=== PATIENT | male | born 1990 | race Two or more races ===

== ENCOUNTER 2016-05-20 18:01 | Emergency (ER) | payer SELFPAY ==
[2016-05-20] MEDS ORDERED: OXYCODONE-ACETAMINOPHEN 5-325 MG TABLET PO ONE (20:02)
[2016-05-20] MEDS ORDERED: ONDANSETRON 4 MG TAB.RAPDIS PO ONE (20:02)
--- NOTE | 2016-05-20 20:05 | ER Document Report ---
ED Medical Screen (RME) - General Chief Complaint: Mouth Problem Stated Complaint: DIFFICULTY SWALLOWING Time seen by provider: 20:03 Mode of Arrival: Ambulatory Information source: Patient Notes: 25-year-old male complaining of gingivostomatitis with a fever and lymph nodes. His girlfriend had a fever blister last week. Painful and he feels like he can't swallow very well. I have greeted and performed a rapid initial assessment of this patient. A comprehensive ED assessment, evaluation of the patient, analysis of test results , and completion of the medical decision making process will be conducted by additional ED providers. TRAVEL OUTSIDE OF THE [place] IN LAST 30 DAYS: No - Related Data Allergies/Adverse Reactions: No Known Allergies Allergy (Verified 11/28/13 08:49) Past Medical History Pulmonary Medical History: Reports: Hx Asthma - Immunizations Hx Diphtheria, Pertussis, Tetanus Vaccination: No Physical Exam - Vital signs Vitals: Temp Pulse Resp BP Pulse Ox 99.2 F 105 H 16 128/79 H 97 05/20/16 18:07 05/20/16 18:07 05/20/16 18:07 05/20/16 18:07 05/20/16 18:07 Course - Vital Signs Vital signs: Temp Pulse Resp BP Pulse Ox 99.2 F 105 H 16 128/79 H 97 05/20/16 18:07 05/20/16 18:07 05/20/16 18:07 05/20/16 18:07 05/20/16 18:07
--- NOTE | 2016-05-20 23:14 | ER Document Report ---
ED Oral Problem - General Mode of Arrival: Ambulatory Information source: Patient, Parent TRAVEL OUTSIDE OF THE [place] IN LAST 30 DAYS: No - HPI Patient complains to provider of: Other - mouth pain with lesions Onset: Other - x2 days Quality of pain: Burning Severity: None Context: Other - see narrative Associated symptoms: None - General Chief Complaint: Mouth Problem Stated Complaint: DIFFICULTY SWALLOWING Notes: Patient is a 25-year-old male that presents to the emergency department today with complaints of mouth pain with oral lesions 2 days. Patient states it is difficult to drink or talk secondary to pain. Patient states he recently had unprotected oral sex with his girlfriend. Mother at bedside also states that she has noticed cold sores on the patient's girlfriend's mouth recently. Patient states he does not believe he has had cold sores or herpes simplex virus in the past. Patient states the lesions are only in his mouth, and he denies having any genital lesions, hand lesions, or foot lesions. (DARLIN MARY) - Related Data Allergies/Adverse Reactions: No Known Allergies Allergy (Verified 05/20/16 21:15) Past Medical History - General Information source: Patient, [facility] Records - Social History Smoking Status: Current Every Day Smoker Cigarette use (# per day): Yes Chew tobacco use (# tins/day): No Frequency of alcohol use: None Drug Abuse: None Lives with: Family Family History: Reviewed & Not Pertinent Patient has suicidal ideation: No Patient has homicidal ideation: No Pulmonary Medical History: Reports: Hx Asthma Past Surgical History: Reports: Hx Tonsillectomy - Immunizations Hx Diphtheria, Pertussis, Tetanus Vaccination: No Review of Systems - Review of Systems Constitutional: No symptoms reported EENT: See HPI, Mouth pain Cardiovascular: No symptoms reported Respiratory: No symptoms reported Gastrointestinal: No symptoms reported Genitourinary: No symptoms reported Male Genitourinary: No symptoms reported Musculoskeletal: No symptoms reported Skin: No symptoms reported Hematologic/Lymphatic: No symptoms reported Neurological/Psychological: No symptoms reported -: Yes All other systems reviewed and negative Physical Exam - Vital signs Vitals: Temp Pulse Resp BP Pulse Ox 99.2 F 105 H 16 128/79 H 97 05/20/16 18:07 05/20/16 18:07 05/20/16 18:07 05/20/16 18:07 05/20/16 18:07 (DARLIN MARY) (CHARIS NERI) - Notes Notes: Physical Exam General: Alert, appears well. HEENT: Normocephalic. Atraumatic. PERRL. Extraocular movements intact. Ulcerations inside of the mouth, including the gums, hard/soft palate, and oropharynx consistent with herpes simplex virus. Neck: Supple. Respiratory: No respiratory distress. Abdominal: Normal Inspection. No distension. Extremities: Moves all four extremities. Neurological: Normal cognition. AAOx4. Normal speech. Psychological: Normal affect. Normal Mood. Skin: see oral exam, no lesions noted on hands. (DARLIN MARY) Course - Re-evaluation Re-evalutation: 05/21/16 Patient with recent exposure to herpes. Girlfriend with cold sore. Patient appears to have a primary HSV infection of his mouth. Patient will be given Xylocaine for pain. He will also be given a prescription for Magic mouthwash. Patient will be medicated with Valtrex. Has been educated about herpes. Stable for discharge home. Return if any worsening or concerning symptoms. Patient has been instructed about careful handwashing. (CHARIS NERI) - Vital Signs Vital signs: Temp Pulse Resp BP Pulse Ox 98.8 F 105 H 14 127/82 H 97 05/20/16 23:38 05/20/16 23:38 05/20/16 23:38 05/20/16 23:38 05/20/16 23:38 (DARLIN MARY) (CHARIS NERI) - Laboratory Laboratory results interpreted by me: 05/20/16 22:55 Chlamydia DNA (PCR) DETECTED H Discharge - Discharge Clinical Impression: Primary HSV infection with gingivostomatitis Condition: Stable Disposition: HOME, SELF-CARE Instructions: Herpes Simplex ([facility]), Genital Herpes ([facility]) Prescriptions: Lidocaine HCl [Xylocaine 2% Viscous Soln 20 ml Udcup] 5 ml PO TIDP PRN #1 udc PRN Reason: Nystatin/Dexameth/Diphen [Magic Mouthwash ([facility] Formula) Susp] 5 ml PO QID #120 ml Valacyclovir HCl [Valtrex] 1,000 mg PO TID #30 tablet Forms: Smoking Cessation Education, Return to Work Scribe Attestation: 05/21/16 03:24 I personally performed the services described in the documentation, reviewed and edited the documentation which was dictated to the scribe in my presence, and it accurately records my words and actions. (CHARIS NERI) Scribe Documentation - Scribe Written by Scribe:: Reji Mcgrath, [id number] 05/21/2016 acting as scribe for :: Talisha
[2016-05-20] MEDS ORDERED: VALACYCLOVIR HCL 500 MG TABLET PO ONE (23:15)
[2016-05-20] MEDS ORDERED: LIDOCAINE 2% VISCOUS SOLN 20 ML UDCUP PO ONE (23:15)
[2016-05-20 23:43] VITALS: BP 127/82
[2016-05-21 00:41] LABS: CHLAM PCR DETECTED (NOT DETECT)
== END 2016-05-20 23:40 | disposition home or self-care (01) ==
LOC: ER 18:01
DX: B00.2 Herpesviral gingivostomatitis and pharyngotonsillitis (principal); F17.210 Nicotine dependence, cigarettes, uncomplicated; J45.909 Unspecified asthma, uncomplicated
CPT/HCPCS: 99283; 87491; 87591; S0119; J3490

== ENCOUNTER 2016-08-25 21:48 | Emergency (ER) | payer OTHER, MEDICAID ==
[2016-08-26] MEDS ORDERED: HYDROCODONE/ACETAMINOPHEN 5-325 MG 6 TAB/DSPK PO PRN (01:00)
[2016-08-26] MEDS ORDERED: PENICILLIN V POTASSIUM 500 MG TABLET PO ONE (01:00)
[2016-08-26] MEDS ORDERED: MORPHINE SULFATE 10 MG/ML INJ IM ONE (01:00)
--- NOTE | 2016-08-26 01:06 | ER Document Report ---
ED Oral Problem - General Chief Complaint: Toothache Stated Complaint: TOOTH PAIN Time Seen by Provider: 08/26/16 00:53 Mode of Arrival: Ambulatory Information source: Patient TRAVEL OUTSIDE OF THE [place] IN LAST 30 DAYS: No - HPI Patient complains to provider of: Toothache Onset: This evening Onset: Sudden Quality of pain: Achy Severity: Moderate Pain Level: 4 Context: Fractured tooth Associated symptoms: Earache Relieved by: Nothing Notes: Patient is a 25-year-old male who presents to the emergency room complaining of dental pain reports that he broke his more in the right mandible approximately 1 month ago, however after eating dinner this evening he developed intense pain in this area, denies any fever, no drainage does not currently have a dentist to follow-up with - Related Data Allergies/Adverse Reactions: No Known Allergies Allergy (Verified 05/20/16 21:15) Past Medical History - General Information source: Patient - Social History Smoking Status: Never Smoker Family History: Reviewed & Not Pertinent Patient has suicidal ideation: No Patient has homicidal ideation: No Pulmonary Medical History: Reports: Hx Asthma Renal/ Medical History: Denies: Hx Peritoneal Dialysis Past Surgical History: Reports: Hx Tonsillectomy - Immunizations Hx Diphtheria, Pertussis, Tetanus Vaccination: No Review of Systems - Review of Systems Constitutional: No symptoms reported EENT: Dental problem Cardiovascular: No symptoms reported Respiratory: No symptoms reported Gastrointestinal: No symptoms reported Genitourinary: No symptoms reported Male Genitourinary: No symptoms reported Musculoskeletal: No symptoms reported Skin: No symptoms reported Hematologic/Lymphatic: No symptoms reported Neurological/Psychological: No symptoms reported -: Yes All other systems reviewed and negative Physical Exam - Vital signs Vitals: Temp Pulse Resp BP Pulse Ox 99.3 F 79 16 131/75 H 96 08/25/16 22:58 08/25/16 22:58 08/25/16 22:58 08/25/16 22:58 08/25/16 22:58 - Notes Notes: - General General appearance: Appears well, Alert In distress: None - HEENT Head: Normocephalic, Atraumatic Eyes: Normal Conjunctiva: Normal Extraocular movements intact: Yes Eyelashes: Normal Pupils: PERRL - Respiratory Respiratory status: No respiratory distress - Cardiovascular Rhythm: Regular - Abdominal Inspection: Normal - Back Back: Normal - Extremities General upper extremity: Normal inspection General lower extremity: Normal inspection - Neurological Neuro grossly intact: Yes Orientation: AAOx4 K[place] Coma Scale Eye Opening: Spontaneous [place] Coma Scale Verbal: Oriented K[place] Coma Scale Motor: Obeys Commands Kaden Coma Scale Total: 15 - Psychological Associated symptoms: Normal affect, Normal mood - Skin Skin Temperature: Warm Skin Moisture: Dry Skin Color: Normal - HEENT Mouth/Lips: Caries, Dental fracture Mucous membranes: Normal Teeth diagram: 1 - dental fracture with dental caries Course - Re-evaluation Re-evalutation: 08/26/16 03:46 Reports minimal relief from morphine injection, therefore an inferior alveolar dental block was performed using bupivacaine patient tolerated procedure well and reports pain relief he was provided with pain medication and antibiotics as well as information for follow-up, advised to return if symptoms worsen, patient acknowledges understanding and agreement with this plan - Vital Signs Vital signs: Temp Pulse Resp BP Pulse Ox 99.0 F 82 16 134/88 H 98 08/26/16 01:50 08/26/16 01:50 08/26/16 01:50 08/26/16 01:50 08/26/16 01:50 Procedures - Additional Procedures Dental block Time performed: 02:00 Additional Procedures: Other - Inferior alveolar dental block, area was anesthetized, 3 mL's of bupivacaine were injected to inferior alveolar space, patient tolerated procedure well Discharge - Discharge Clinical Impression: Tooth fracture Qualifiers: Encounter type: initial encounter Fracture type: closed Qualified Code(s): S02.5XXA - Fracture of tooth (traumatic), initial encounter for closed fracture Condition: Stable Disposition: HOME, SELF-CARE Instructions: [facility], Oral Narcotic Medication ([facility]), Penicillin V K ([facility]), Toothache ([facility]) Additional Instructions: Follow-up with a dentist within the next week. Return to the emergency room if symptoms worsen or any additional concerns. Prescriptions: Oxycodone HCl/Acetaminophen [Percocet 5-325 mg Tablet] 1 - 2 tab PO ASDIR PRN # 15 tablet PRN Reason: Penicillin V Potassium [Penicillin Vk 500 mg Tablet] 500 mg PO TID #30 tablet
[2016-08-26] MEDS ORDERED: BUPIVACAINE HCL 0.75% INJ/PF (7.5 MG/1 ML) 10 ML SDV INJ ONE (01:30)
[2016-08-26 02:01] VITALS: BP 134/88
== END 2016-08-26 01:50 | disposition home or self-care (01) ==
LOC: ER 21:48
PROC: 3E0T3BZ Introduction of Anesthetic Agent into Peripheral Nerves and Plexi, Percutaneous Approach (ICD-10-PCS; principal; 2016-08-25)
DX: S02.5XXA Fracture of tooth (traumatic), initial encounter for closed fracture (principal); K08.89 Other specified disorders of teeth and supporting structures; X58.XXXA Exposure to other specified factors, initial encounter
CPT/HCPCS: 99282; 96372; 64400; J2270; J3490

== ENCOUNTER 2017-05-15 01:30 | Emergency (ER) | payer OTHER, MEDICAID ==
[2017-05-15] MEDS ORDERED: ACETAMINOPHEN 325 MG TABLET PO ONE (03:37)
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
--- NOTE | 2017-05-15 06:26 | RADIOLOGY REPORT (SQ) ---
EXAM DESCRIPTION: CT HEAD WITHOUT CLINICAL HISTORY: trauma COMPARISON: None available TECHNIQUE: Axial CT of the head obtained from the skull apex to the skull base without contrast. FINDINGS: No acute intracranial hemorrhage identified. No mass, mass effect, shift of the midline, abnormal extra-axial fluid collection or CT evidence of acute ischemic change identified. The ventricular system is unremarkable. No acute abnormalities of the supratentorial white matter, basal ganglia, cerebellum, or brainstem. The visualized paranasal sinuses and the mastoids are clear. No skull fracture identified. Visualized orbits and globes are unremarkable. Bilateral minimally displaced nasal bone fractures identified. Please see facial bone CT for further details. DLP:1450.37 mGy-cm IMPRESSION: 1. No acute intracranial abnormality by CT criteria. This exam was performed according to our departmental dose-optimization program, which includes automated exposure control, adjustment of the mA and/or kV according to patient size and/or use of iterative reconstruction technique.
--- NOTE | 2017-05-15 06:28 | RADIOLOGY REPORT (SQ) ---
EXAM DESCRIPTION: CT CERVICAL SPINE WITHOUT CLINICAL HISTORY: trauma COMPARISON: 09/16/2010 TECHNIQUE: Axial CT of the cervical spine obtained without contrast. FINDINGS: Alignment of the cervical spine is maintained without evidence of subluxation. The atlantoaxial, atlantodental, and occipitoatlantal intervals are preserved. No fracture identified. Vertebral body height preserved. Prevertebral soft tissues are unremarkable. Intervertebral disc height maintained. Visualized skull base is intact. No fracture of the visualized facial bones. Visualized mastoid air cells and paranasal sinuses are well aerated. Visualized thyroid is unremarkable. No cervical lymphadenopathy. No pneumothorax in the visualized lung apices. DLP: 424.42 mGy-cm IMPRESSION: 1. No acute fracture or subluxation of the cervical spine. This exam was performed according to our departmental dose-optimization program, which includes automated exposure control, adjustment of the mA and/or kV according to patient size and/or use of iterative reconstruction technique.
--- NOTE | 2017-05-15 06:32 | RADIOLOGY REPORT (SQ) ---
EXAM DESCRIPTION: CT FACIAL AREA WITHOUT CLINICAL HISTORY: trauma COMPARISON: None available TECHNIQUE: Axial CT of the facial bones obtained without contrast. FINDINGS: Acute comminuted minimally displaced bilateral nasal bone fractures. Orbital rankin are intact. No abnormality of the globes or intraconal contents. Maxillary antral rankin are intact. Minimal mucosal thickening of the ethmoid air cells and maxillary sinuses. Mastoid air cells are well aerated. Maxillary hard palate is intact. Zygomatic processes are intact. Pterygoid plates are intact. No mandibular fracture identified. No mandibular condylar dislocation. The nasopharyngeal, oropharyngeal, hypopharyngeal soft tissues demonstrate no definite abnormality. No abnormality identified in the thyroid gland. Parotid glands and submandibular glands are unremarkable. DLP: 536.09 mGy-cm IMPRESSION: 1. Acute minimally displaced bilateral nasal bone fractures. This exam was performed according to our departmental dose-optimization program, which includes automated exposure control, adjustment of the mA and/or kV according to patient size and/or use of iterative reconstruction technique.
--- NOTE | 2017-05-15 06:41 | RADIOLOGY REPORT (SQ) ---
EXAM DESCRIPTION: ANKLE RIGHT COMPLETE CLINICAL HISTORY: trauma COMPARISON: None. FINDINGS: 3 views of the right ankle. No acute fracture or dislocation. Tibial plafond and talar dome have normal appearance. Normal osseous mineralization. IMPRESSION: No acute fracture or dislocation.
--- NOTE | 2017-05-15 06:43 | RADIOLOGY REPORT (SQ) ---
EXAM DESCRIPTION: HAND BILATERAL 3 VIEWS CLINICAL HISTORY: trauma COMPARISON: None. FINDINGS: Left hand: 3 views of the left hand. Acute minimally displaced volarly angulated fracture of the distal left fifth metacarpal. Normal osseous mineralization. No other acute fracture identified. Right hand: 3 views of the right hand. No acute fracture or dislocation. Normal osseous mineralization. IMPRESSION: 1. Acute minimally displaced volarly angulated fracture of the distal left fifth metacarpal. 2. No acute right hand fracture.
[2017-05-15 07:17] VITALS: BP 129/75
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
[2017-05-15] MEDS ORDERED: OXYCODONE-ACETAMINOPHEN 5-325 MG TABLET PO ONE (07:46)
[2017-05-15] MEDS ORDERED: OXYMETAZOLINE HCL 0.05% NASAL SPRAY 15 ML BOTTLE NASL ONE (08:27)
== END 2017-05-15 09:25 | disposition home or self-care (01) ==
LOC: ER 01:30
DX: S02.2XXA Fracture of nasal bones, initial encounter for closed fracture (principal); S01.21XA Laceration without foreign body of nose, initial encounter; S62.367A Nondisplaced fracture of neck of fifth metacarpal bone, left hand, initial encounter for closed fracture; Y04.2XXA Assault by strike against or bumped into by another person, initial encounter; Y93.01 Activity, walking, marching and hiking; Y92.410 Unspecified street and highway as the place of occurrence of the external cause
CPT/HCPCS: 99284; 73610; 73130; 70450; 70486; 72125; 29125; 12011; L0172; J3490

== ENCOUNTER 2017-07-31 21:41 | Emergency (ER) | payer MEDICAID, OTHER ==
[2017-07-31] MEDS ORDERED: ONDANSETRON 4 MG TAB.RAPDIS PO ONE (23:19)
[2017-07-31] MEDS ORDERED: NORMAL SALINE 1000 ML 1,000 ML IV ONE (23:19)
--- NOTE | 2017-07-31 23:20 | ER Document Report ---
ED Medical Screen (RME) - General Chief Complaint: Nausea/Vomiting Stated Complaint: VOMITING Time Seen by Provider: 07/31/17 23:19 Mode of Arrival: Ambulatory Information source: Patient Notes: Patient presents complaining of nausea and vomiting that started yesterday. Patient states he is vomited about 20 times today. Patient complains of generalized abdominal cramping and states that he has had intermittent muscle cramps. I have greeted and performed a rapid initial assessment of this patient. A comprehensive ED assessment and evaluation of the patient, analysis of test results and completion of the medical decision making process will be conducted by additional ED providers. TRAVEL OUTSIDE OF THE [place] IN LAST 30 DAYS: No - Related Data Allergies/Adverse Reactions: No Known Allergies Allergy (Verified 05/20/16 21:15) Past Medical History Pulmonary Medical History: Denies: Hx Asthma Renal/ Medical History: Denies: Hx Peritoneal Dialysis Past Surgical History: Reports: Hx Tonsillectomy - Immunizations Hx Diphtheria, Pertussis, Tetanus Vaccination: No Physical Exam - Vital signs Vitals: Temp Pulse Resp BP Pulse Ox 98.6 F 79 18 132/88 H 97 07/31/17 22:39 07/31/17 22:39 07/31/17 22:39 07/31/17 22:39 07/31/17 22:39 - Abdominal Tenderness: Tender - Generalized abdomen Course - Vital Signs Vital signs: Temp Pulse Resp BP Pulse Ox 98.6 F 79 18 132/88 H 97 07/31/17 22:39 07/31/17 22:39 07/31/17 22:39 07/31/17 22:39 07/31/17 22:39
[2017-08-01 00:15] LABS: APPEARANCE,URINE SLIGHTLY-CLOUDY; BILIRUBIN,URINE SMALL (NEGATIVE); COLOR,URINE AMBER; GLUCOSE, URINE NEGATIVE (NEGATIVE); KETONES,URINE 80 mg/dL (NEGATIVE); LEUKOCYTE ESTERASE,URINE NEGATIVE (NEGATIVE); NITRITE,URINE NEGATIVE (NEGATIVE); PROTEIN,URINE >=500 mg/dL (NEGATIVE); URINE SPECIFIC GRAVITY 1.032
[2017-08-01 00:16] LABS: ABSOLUTE LYMPHOCYTES (AUTO) 0.9 10^3/uL (0.5-4.7); ABSOLUTE MONOCYTES (AUTO) 0.5 10^3/uL (0.1-1.4); ABSOLUTE NEUT (AUTO) 4.5 10^3/uL (1.7-8.2); BASOPHILS % (AUTO) 0.5 % (0-2); EOSINOPHILS % (AUTO) 0.7 % (0-6); HEMATOCRIT 46.1 % (37.9-51.0); HEMOGLOBIN 15.6 g/dL (13.5-17.0); LYMPHOCYTES % (AUTO) 14.5 % (13-45); MEAN CORPUSCULAR HEMOGLOBIN 32.1 pg (27.0-33.4); MEAN CORPUSCULAR HGB CONC 33.9 g/dL (32.0-36.0); MEAN CORPUSCULAR VOLUME 95 fl (80-97); MONOCYTES % (AUTO) 8.2 % (3-13); PLATELET COUNT 172 10^3/uL (150-450); RED BLOOD COUNT 4.88 10^6/uL (4.35-5.55); RED CELL DISTRIBUTION WIDTH 16.1 % (11.5-14.0); SEGMENTED NEUTROPHILS % (AUTO) 76.1 % (42-78); TOTAL CELLS COUNTED % (AUTO) 100 %; WHITE BLOOD COUNT 5.9 10^3/uL (4.0-10.5)
[2017-08-01 00:36] LABS: ALANINE AMINOTRANSFERASE 230 U/L (21-72); ALBUMIN 5.3 g/dL (3.5-5.0); ALKALINE PHOSPHATASE 105 U/L (38-126); ANION GAP 14 (5-19); ASPARTATE AMINO TRANSFERASE 214 U/L (17-59); BILIRUBIN,DIRECT 0.4 mg/dL (0.0-0.4); BILIRUBIN,TOTAL 1.1 mg/dL (0.2-1.3); BLOOD UREA NITROGEN 13 mg/dL (7-20); CALCIUM 9.4 mg/dL (8.4-10.2); CARBON DIOXIDE 32 mmol/L (22-30); CHLORIDE 95 mmol/L (98-107); CREATINE KINASE 296 U/L (55-170); GLUCOSE 124 mg/dL (75-110); LIPASE 74.1 U/L (23-300); POTASSIUM 3.5 mmol/L (3.6-5.0); SODIUM 141.2 mmol/L (137-145); TOTAL PROTEIN 8.9 g/dL (6.3-8.2)
[2017-08-01] MEDS ORDERED: NORMAL SALINE 1000 ML 1,000 ML IV ONE (00:48)
--- NOTE | 2017-08-01 01:10 | ER Document Report ---
ED GI/ - General Chief Complaint: Nausea/Vomiting Stated Complaint: VOMITING Time Seen by Provider: 07/31/17 23:19 Mode of Arrival: Ambulatory Notes: The patient is a 26-year-old male, no past medical history, presents with 2 days of nausea and multiple episodes of nonbloody, nonbilious vomiting. He denies abdominal pain, recent travel, hematemesis, fevers, tainted food, diarrhea, constipation, urinary symptoms, history of hepatitis or heavy Tylenol use. TRAVEL OUTSIDE OF THE [place] IN LAST 30 DAYS: No - Related Data Allergies/Adverse Reactions: No Known Allergies Allergy (Verified 05/20/16 21:15) Past Medical History - General Information source: Patient - Social History Smoking Status: Unknown if Ever Smoked Family History: Reviewed & Not Pertinent Pulmonary Medical History: Denies: Hx Asthma Renal/ Medical History: Denies: Hx Peritoneal Dialysis Past Surgical History: Reports: Hx Tonsillectomy - Immunizations Hx Diphtheria, Pertussis, Tetanus Vaccination: No Review of Systems - Review of Systems Notes: REVIEW OF SYSTEMS: CONSTITUTIONAL: -fevers, -chills EENT: -eye pain, -difficulty swallowing, -nasal congestion CARDIOVASCULAR: -chest pain, -syncope. RESPIRATORY: -cough, -SOB GASTROINTESTINAL: -abdominal pain, +nausea, +vomiting, -diarrhea GENITOURINARY: -dysuria, -hematuria MUSCULOSKELETAL: -back pain, -neck pain SKIN: -rash or skin lesions. HEMATOLOGIC: -easy bruising or bleeding. LYMPHATIC: -swollen, enlarged glands. NEUROLOGICAL: -altered mental status or loss of consciousness, -headache, - neurologic symptoms PSYCHIATRIC: -anxiety, -depression. ALL OTHER SYSTEMS REVIEWED AND NEGATIVE. Physical Exam - Vital signs Vitals: Temp Pulse Resp BP Pulse Ox 98.6 F 79 18 132/88 H 97 07/31/17 22:39 07/31/17 22:39 07/31/17 22:39 07/31/17 22:39 07/31/17 22:39 - Notes Notes: PHYSICAL EXAMINATION: GENERAL: Well-appearing, well-nourished and in no acute distress. HEAD: Atraumatic, normocephalic. EYES: Pupils equal round and reactive to light, extraocular movements intact, sclera anicteric, conjunctiva are normal. ENT: nares patent, oropharynx clear without exudates. Moist mucous membranes. NECK: Normal range of motion, supple without lymphadenopathy LUNGS: Breath sounds clear to auscultation bilaterally and equal. No wheezes rales or rhonchi. HEART: Regular rate and rhythm without murmurs ABDOMEN: Soft, nontender, normoactive bowel sounds. No guarding, no rebound. No masses appreciated. EXTREMITIES: Normal range of motion, no pitting or edema. No cyanosis. NEUROLOGICAL: Cranial nerves grossly intact. Normal speech, normal gait. Normal sensory and motor exams. PSYCH: Normal mood, normal affect. SKIN: Warm, Dry, normal turgor, no rashes or lesions noted. Course - Re-evaluation Re-evalutation: Patient appears very well. After IV fluids and Zofran, he feels much better. Blood work is consistent with mild dehydration. He does have elevated LFTs and hepatitis panel sent. Ultrasound obtained of the liver, which does not show any acute abnormalities. He is tolerating fluids by mouth in the ER. Instructed him to stay hydrated and given very strict return precautions. hepatitis panel is pending upon his discharge. - Vital Signs Vital signs: Temp Pulse Resp BP Pulse Ox 98.3 F 89 18 133/88 H 96 08/01/17 02:52 08/01/17 02:52 08/01/17 02:52 08/01/17 02:52 08/01/17 02:52 - Laboratory Result Diagrams: 07/31/17 23:39 07/31/17 23:39 Laboratory results interpreted by me: 07/31/17 07/31/17 07/31/17 23:39 23:39 23:39 RDW 16.1 H Potassium 3.5 L Chloride 95 L Carbon Dioxide 32 H Glucose 124 H AST 214 H ALT 230 H Creatine Kinase 296 H Total Protein 8.9 H Albumin 5.3 H Urine Protein >=500 H Urine Ketones 80 H Urine Bilirubin SMALL H Urine Urobilinogen 4.0 H - Diagnostic Test Radiology reviewed: Image reviewed, Reports reviewed Radiology results interpreted by me: JULIAN US: Normal Discharge - Discharge Clinical Impression: Nausea and vomiting in adult, Elevated LFTs Condition: Stable Disposition: HOME, SELF-CARE Additional Instructions: Your liver tests are elevated. You should have this rechecked by your primary care physician this week when you are not having vomiting. Return to the ER if you have any worsening symptoms. VOMITING: Vomiting (or nausea without vomiting) can be caused by many other different problems. It can mean that something's wrong with the stomach, such as ulcers or inflammation or the intestinal tract, such as appendicitis. But it can also be a symptom of a problem that has nothing to do with the stomach or intestines. Vomiting is common with severe headaches, earaches, tonsillitis, and kidney infections, etc. We see it with pneumonia or heart attacks. Drugs can cause nausea and vomiting. Many abdominal problems cause vomiting; for example, gallstones, kidney stones, pancreatitis, and intestinal obstruction ( blocked bowels). In most cases, curing the vomiting depends on fixing the problem that caused it. For temporary relief, we may use an anti-nausea medicine. For home use, we can prescribe suppositories, chewable pills, pills that dissolve in the mouth, or liquid anti-nausea drugs. If the vomiting seems to be caused by a problem in the stomach, acid-suppressing drugs may be prescribed as well. It's important to avoid dehydration. Sip small amounts of clear liquids ( soft drinks, tea, broth, etc) . Try to take fluids frequently even if you are vomiting to prevent dehydration. Take increasing amounts of fluid and when liquids are being consumed successfully, advance to small amounts of bland food (toast, soups, mashed potatoes, etc.) until you are able to resume a regular diet. Avoid aspirin, tobacco, and alcohol. If the vomiting worsens, if the problem that's making you vomit worsens, or if there's evidence of bleeding in the stomach (such as black, tarry stool, or bloody or black vomit), you should return immediately. Also, return if abdominal pain worsens or becomes localized to one area or you develop high fever. Call your doctor if you aren't improved in 24 hours. VIRAL SYNDROME: The physician has diagnosed a viral infection. Viruses not only cause "colds," but can cause many different symptoms including generalized aching, fever, headache, cough, diarrhea, nausea, vomiting, and fatigue. The treatment, for the most part, is simply relief of symptoms. This means that antibiotics are usually not given. Rest, fluids, pain medications and, occasionally, medication for the specific symptoms that are most bothersome will be prescribed. Use good handwashing to avoid passing the virus to others. Shared toys should be cleaned with disinfectant. Clean the toilets, sinks, and counter surfaces in bathrooms. Launder clothing in hot water. Contact the physician if you develop any new or unusual symptoms such as severe headache, stiff neck, high fever, chest pain, productive cough, or shortness of breath. You should be rechecked if you don't see marked improvement within seven to 10 days. INTRAVENOUS (I V) FLUIDS: As part of your care today, you received intravenous (IV) fluids. IV fluids are administered to patients who are dehydrated or to those who have certain chemical (electrolyte) abnormalities that need correcting. ANTINAUSEA MEDICATION: You have been given a medication to suppress nausea and vomiting. This type of medication can be given as a shot, pill, or suppository. It will usually last for many hours. Pills and shots usually last six to eight hours. For the typical illness, only one or two doses of the medication may be necessary. Mild lightheadedness may occur. This type of medicine can cause drowsiness. Do not drive or operate dangerous machinery while under its influence. Do not mix with alcohol. See your doctor at once if you have muscle spasms or tightness, or uncontrollable motions (particularly of the neck, mouth, or jaw). Persistent vomiting or severe lightheadedness should also be evaluated by the physician. FOLLOW-UP CARE: If you have been referred to a physician for follow-up care, call the physician s office for an appointment as you were instructed or within the next two days. If you experience worsening or a significant change in your symptoms, notify the physician immediately or return to the Emergency Department at any time for re-evaluation. Prescriptions: Ondansetron [Zofran Odt 4 mg Tablet] 1 - 2 tab PO Q4H PRN #15 tab.rapdis PRN Reason: For Nausea/Vomiting Forms: Elevated Blood Pressure Referrals: ANGELITA JUNIOR MD [ACTIVE STAFF] - Follow up as needed
--- NOTE | 2017-08-01 03:38 | RADIOLOGY REPORT (SQ) ---
EXAM DESCRIPTION: U/S ABDOMEN LIMITED W/O DOP CLINICAL HISTORY: 26 years Male, RUQ tenderness, elevated LFTs, N/V Comparison: None. LIMITATIONS: Bowel gas artifact. FINDINGS: Gallbladder, negative sonographic Griffin's test, liver, a 0.2-cm diameter common bile duct, no intrahepatic ductal dilation, 11-cm right kidney, partially obscured pancreas, survey of the visualized abdominal aorta, and no significant ascites appear otherwise unremarkable. IMPRESSION: Normal RUQ-Abdominal Sonogram.
[2017-08-01 04:09] VITALS: BP 132/88
[2017-08-02 04:38] LABS: HEPATITIS A AB IGM Negative (Negative); HEPATITIS B CORE AB IGM Negative (Negative); HEPATITS B SURFACE ANTIGEN Negative (Negative)
[2017-08-03 07:29] LABS: HEPATITIS C VIRUS ANTIBODY >11.0 s/co ratio (0.0-0.9)
== END 2017-08-01 04:08 | disposition home or self-care (01) ==
LOC: ER 21:41
DX: R11.2 Nausea with vomiting, unspecified (principal); R79.89 Other specified abnormal findings of blood chemistry
CPT/HCPCS: 99284; 96361; 96374; 36415; 82550; 83690; 85025; 80053; 81001; 80074; 76705; S0119; J7030 ×2

== ENCOUNTER 2017-09-16 20:21 | Emergency (ER) | payer SELFPAY ==
[2017-09-16] MEDS ORDERED: NORMAL SALINE 1000 ML 1,000 ML IV ONE ×2 (21:01→21:39)
--- NOTE | 2017-09-16 21:02 | ER Document Report ---
ED General - General Chief Complaint: Overdose Stated Complaint: POSSIBLE OVERDOSE Time Seen by Provider: 09/16/17 21:01 Notes: 26-year-old male brought in by EMS for altered mental status. Patient was apparently running around in the street. Cars were having to avoid him. Was erratic was not making sense. By report from bystanders he is a known abuser of drugs. Patient had strong smell of alcohol on breath. Patient was fighting with EMS and law enforcement personnel. Had chemical restraints in the field. Received Haldol and Versed. Patient became more cooperative. Brought in by ambulance for evaluation. Patient somnolent on arrival. Immediately placed on monitor. IV was established. IV fluids started. Overdose protocol started. TRAVEL OUTSIDE OF THE [place] IN LAST 30 DAYS: No - HPI Onset: Just prior to arrival - Related Data Allergies/Adverse Reactions: No Known Allergies Allergy (Verified 05/20/16 21:15) Past Medical History - General Information source: [facility] Records Cannot obtain history due to: Uncooperative, Altered mental status - Social History Smoking Status: Current Every Day Smoker Frequency of alcohol use: Heavy Drug Abuse: Other - Unknown Lives with: Other Family History: Other - Family history unknown. denies: Reviewed & Not Pertinent Pulmonary Medical History: Denies: Hx Asthma Renal/ Medical History: Denies: Hx Peritoneal Dialysis Past Surgical History: Reports: Hx Tonsillectomy - Immunizations Hx Diphtheria, Pertussis, Tetanus Vaccination: No Review of Systems - Review of Systems -: Yes ROS unobtainable due to patient's medical condition - Unable to obtain due to altered mental status and intoxication Physical Exam - Vital signs Vitals: Temp 97.6 F 09/16/17 21:25 Interpretation: Tachycardic - Notes Notes: Patient is arousable. On a monitor and sleeping at this time. Strong smell of alcohol on his breath. - General General appearance: Appears well, Alert - HEENT Head: Normocephalic, Atraumatic Eyes: Normal Pupils: PERRL - Respiratory Respiratory status: No respiratory distress Chest status: Nontender Breath sounds: Normal Chest palpation: Normal - Cardiovascular Rhythm: Tachycardia Heart sounds: Normal auscultation Murmur: No - Abdominal Inspection: Normal Distension: No distension Bowel sounds: Normal Tenderness: Nontender Organomegaly: No organomegaly - Back Back: Normal, Nontender - Extremities General upper extremity: Normal inspection, Nontender, Normal color, Normal ROM , Normal temperature General lower extremity: Normal inspection, Nontender, Normal color, Normal ROM , Normal temperature, Normal weight bearing. No: Klaudia's sign - Neurological Neuro grossly intact: Yes Motor strength normal: LUE, RUE, LLE, RLE Sensory: Normal - Skin Skin Temperature: Warm Skin Moisture: Dry Skin Color: Normal Course - Re-evaluation Re-evalutation: 09/16/17 21:32 IV established. IV fluids ordered. Will place on monitor. Psychiatric overdose screening labs ordered. 09/16/17 22:13 Patient extremely sonorous but heart rate in the 60s, blood pressure 100/60, oxygen saturation 96%. Placing on continuous monitoring. Do not feel compelled at this time to intubate patient even though he is quite obtunded. Patient is intoxicated. Will continue to monitor at this time. 09/16/17 22:46 Alcohol level elevated. No other tox found in the urine. Continue to monitor here. 09/16/17 23:26 Patient continues to be altered. Heart rate of 90. Pulse ox 97% in no acute distress. Will need to observe patient for extended period of time. I find no evidence of trauma due to his altered mental status and intoxication will do head CT just to be safe. Patient has been signed over to Dr. Crowder. If patient clears and is appropriate then comfortable discharging when appropriate. 09/17/17 00:20 Patient now becoming more agitated. Cursing. Being abusive to the staff. Security was called. Patient was placed on papers for 24 hour eval due to potential harm for himself. Will give Haldol IM. Four-point restraints. Patient will be reevaluated for appropriateness when he becomes more cooperative. - Vital Signs Vital signs: Temp Pulse Resp BP Pulse Ox 97.6 F 16 107/60 98 09/16/17 21:25 09/16/17 23:01 09/16/17 23:01 09/16/17 23:01 - Laboratory Result Diagrams: 09/16/17 20:40 09/16/17 20:40 Laboratory results interpreted by me: 09/16/17 09/16/17 09/16/17 20:40 20:40 20:40 RDW 16.5 H Sodium 152.2 H Chloride 112 H Direct Bilirubin 0.5 H AST 217 H ALT 287 H Creatine Kinase 237 H Urine Blood Salicylates < 1.0 L Acetaminophen < 10 L Serum Alcohol 318 H* 09/16/17 21:26 RDW Sodium Chloride Direct Bilirubin AST ALT Creatine Kinase Urine Blood MODERATE H Salicylates Acetaminophen Serum Alcohol - EKG Interpretation by Me EKG shows normal: [place], Intervals, QRS Complexes, ST-T Waves Rate: Tachycardia Critical Care Note - Critical Care Note Total time excluding time spent on procedures (mins): 45 Comments: Altered mental status, overdose Discharge - Discharge Clinical Impression: Intoxication Altered mental status Qualifiers: Altered mental status type: unspecified Qualified Code(s): R41.82 - Altered mental status, unspecified Condition: Good Instructions: Acute Alcohol Intoxication ([facility]), Altered Mental Status ([facility])
[2017-09-16 21:07] LABS: ABSOLUTE EOSINOPHILS # (AUTO) 0.2 10^3/uL (0.0-0.6); ABSOLUTE LYMPHOCYTES (AUTO) 2.5 10^3/uL (0.5-4.7); ABSOLUTE MONOCYTES (AUTO) 0.4 10^3/uL (0.1-1.4); ABSOLUTE NEUT (AUTO) 3.1 10^3/uL (1.7-8.2); BASOPHILS % (AUTO) 0.4 % (0-2); EOSINOPHILS % (AUTO) 3.8 % (0-6); HEMATOCRIT 47.5 % (37.9-51.0); LYMPHOCYTES % (AUTO) 40.8 % (13-45); MEAN CORPUSCULAR HEMOGLOBIN 30.6 pg (27.0-33.4); MEAN CORPUSCULAR HGB CONC 33.7 g/dL (32.0-36.0); MEAN CORPUSCULAR VOLUME 91 fl (80-97); MONOCYTES % (AUTO) 6.2 % (3-13); PLATELET COUNT 207 10^3/uL (150-450); RED BLOOD COUNT 5.22 10^6/uL (4.35-5.55); RED CELL DISTRIBUTION WIDTH 16.5 % (11.5-14.0); SEGMENTED NEUTROPHILS % (AUTO) 48.8 % (42-78); TOTAL CELLS COUNTED % (AUTO) 100 %; WHITE BLOOD COUNT 6.2 10^3/uL (4.0-10.5)
--- NOTE | 2017-09-16 21:13 | EKG REPORT ---
SEVERITY:- ABNORMAL ECG - SINUS TACHYCARDIA PROBABLE LEFT ATRIAL ABNORMALITY PROBABLE LEFT VENTRICULAR HYPERTROPHY ST ELEV, PROBABLE NORMAL EARLY REPOL PATTERN : Confirmed by: Shaggy Crews MD 16-Sep-2017 21:13:23
[2017-09-16 21:37] LABS: ALANINE AMINOTRANSFERASE 287 U/L (21-72); ALBUMIN 4.5 g/dL (3.5-5.0); ALKALINE PHOSPHATASE 83 U/L (38-126); ANION GAP 16 (5-19); ASPARTATE AMINO TRANSFERASE 217 U/L (17-59); BILIRUBIN,DIRECT 0.5 mg/dL (0.0-0.4); BILIRUBIN,TOTAL 0.5 mg/dL (0.2-1.3); BLOOD UREA NITROGEN 9 mg/dL (7-20); CALCIUM 9.2 mg/dL (8.4-10.2); CARBON DIOXIDE 24 mmol/L (22-30); CHLORIDE 112 mmol/L (98-107); GLUCOSE 92 mg/dL (75-110); POTASSIUM 4.6 mmol/L (3.6-5.0); SODIUM 152.2 mmol/L (137-145); TOTAL PROTEIN 7.7 g/dL (6.3-8.2)
[2017-09-16 22:00] LABS: ACETAMINOPHEN < 10 ug/mL (10-30); SALICYLATE < 1.0 mg/dL (2.0-20.0)
[2017-09-16 22:00] LABS: APPEARANCE,URINE CLEAR; BILIRUBIN,URINE NEGATIVE (NEGATIVE); COLOR,URINE YELLOW; GLUCOSE, URINE NEGATIVE (NEGATIVE); KETONES,URINE NEGATIVE (NEGATIVE); LEUKOCYTE ESTERASE,URINE NEGATIVE (NEGATIVE); NITRITE,URINE NEGATIVE (NEGATIVE); PROTEIN,URINE NEGATIVE (NEGATIVE); URINE SPECIFIC GRAVITY 1.012; UROBILINOGEN,URINE NEGATIVE mg/dL (<2.0)
[2017-09-16 22:02] LABS: ALCOHOL 318 mg/dL (NONE DETECTED)
[2017-09-16 22:26] LABS: URINE AMPHETAMINES SCREEN NEGATIVE; URINE BARBITURATES SCREEN NEGATIVE; URINE BENZODIAZEPINES SCREEN UNCONFIRMED POSITIVE; URINE COCAINE SCREEN NEGATIVE; URINE MARIJUANA (THC) SCREEN NEGATIVE; URINE METHADONE SCREEN NEGATIVE; URINE PHENCYCLIDINE SCREEN NEGATIVE
[2017-09-17] MEDS ORDERED: HALOPERIDOL LACTATE INJ 5 MG/1 ML VIAL IM ONE (00:20)
--- NOTE | 2017-09-17 02:03 | RADIOLOGY REPORT (SQ) ---
EXAM DESCRIPTION: CT HEAD WITHOUT IV CONTRAST COMPLETED DATE/TME: 09/16/2017 23:31 EXAM DESCRIPTION: CT of the head without contrast CLINICAL HISTORY: altered, intoxicated COMPARISON: 05/15/2017 TECHNIQUE: Axial CT of the head obtained from the skull apex to the skull base without contrast. FINDINGS: No acute intracranial hemorrhage identified. No mass, mass effect, shift of the midline, abnormal extra-axial fluid collection or CT evidence of acute ischemic change identified. The ventricular system is unremarkable. No acute abnormalities of the supratentorial white matter, basal ganglia, cerebellum, or brainstem. Mucosal thickening of the paranasal sinuses. Mastoid air cells are well aerated. No skull fracture identified. Visualized orbits and globes are unremarkable. DLP:1056.39 mGy-cm IMPRESSION: 1. No acute intracranial abnormality identified. This exam was performed according to our departmental dose-optimization program, which includes automated exposure control, adjustment of the mA and/or kV according to patient size and/or use of iterative reconstruction technique.
[2017-09-17 04:30] LABS: ANION GAP 11 (5-19); BLOOD UREA NITROGEN 7 mg/dL (7-20); CALCIUM 8.4 mg/dL (8.4-10.2); CARBON DIOXIDE 26 mmol/L (22-30); CHLORIDE 113 mmol/L (98-107); CREATINE KINASE 509 U/L (55-170); GLUCOSE 88 mg/dL (75-110); POTASSIUM 4.3 mmol/L (3.6-5.0); SODIUM 149.7 mmol/L (137-145)
[2017-09-17 10:28] VITALS: BP 118/72
== END 2017-09-17 10:00 | disposition home or self-care (01) ==
LOC: ER 20:21
DX: F10.920 Alcohol use, unspecified with intoxication, uncomplicated (principal); R41.82 Altered mental status, unspecified; F17.200 Nicotine dependence, unspecified, uncomplicated; R00.0 Tachycardia, unspecified; Z78.1 Physical restraint status
CPT/HCPCS: 93005; 99284; 96372; 96360; 96361; 51701; 36415; 80307 ×4; 82550; 85025; 80048; 80053; 81001; 70450; 93010; J1630; J7030

== ENCOUNTER 2019-02-08 14:20 | Emergency (ER) | payer SELFPAY ==
--- NOTE | 2019-02-08 14:33 | ER Document Report ---
ED Medical Screen (RME) - General Chief Complaint: ETOH Abuse Stated Complaint: ETOH Time Seen by Provider: 02/08/19 14:29 Mode of Arrival: Medic Information source: Patient Notes: 28-year-old male presented to ED for alcohol intoxication. He states he feels like it is a whole lot more than just alcohol. He did come by EMS. He also has a swollen right hand where he states he punched a wall all of his knuckles abrasions. States he had a few swigs but he does not know what he was drinking. States he does not do drugs he just drinks. States he smokes a pack a day drinks daily. He states that a year ago he had to go to the hospital for having a seizure from alcohol withdrawal. I have greeted and performed a rapid initial assessment of this patient. A comprehensive ED assessment and evaluation of the patient, analysis of test results and completion of medical decision making process will be conducted by an additional ED providers. TRAVEL OUTSIDE OF THE [place] IN LAST 30 DAYS: No - Related Data Allergies/Adverse Reactions: No Known Allergies Allergy (Verified 02/08/19 14:28) Past Medical History Pulmonary Medical History: Denies: Hx Asthma Renal/ Medical History: Denies: Hx Peritoneal Dialysis Past Surgical History: Reports: Hx Tonsillectomy - Immunizations Hx Diphtheria, Pertussis, Tetanus Vaccination: No
--- NOTE | 2019-02-08 15:13 | RADIOLOGY REPORT (SQ) ---
EXAM DESCRIPTION: HAND RIGHT 3 VIEWS COMPLETED DATE/TIME: 02/08/2019 2:52 pm REASON FOR STUDY: punched wall 3 days ago COMPARISON: None. EXAM PARAMETERS: NUMBER OF VIEWS: Three views. TECHNIQUE: AP, lateral and oblique radiographic images acquired of the right hand. LIMITATIONS: None. FINDINGS: MINERALIZATION: Normal. BONES: Fracture of the 5th metacarpal shaft with approximately 45 dorsal angulation. JOINTS: No effusions. SOFT TISSUES: No foreign body. OTHER: No other significant finding. IMPRESSION: Fracture 5th metacarpal. TECHNICAL DOCUMENTATION: JOB ID: [id number] [employer]- All Rights Reserved Reading location - IP/workstation name: [email or web address]
[2019-02-08 15:14] LABS: ABSOLUTE BASOPHILS # (AUTO) 0.1 10^3/uL (0.0-0.2); ABSOLUTE LYMPHOCYTES (AUTO) 1.7 10^3/uL (0.5-4.7); ABSOLUTE MONOCYTES (AUTO) 0.7 10^3/uL (0.1-1.4); ABSOLUTE NEUT (AUTO) 7.6 10^3/uL (1.7-8.2); BASOPHILS % (AUTO) 0.5 % (0-2); EOSINOPHILS % (AUTO) 0.5 % (0-6); HEMATOCRIT 46.2 % (37.9-51.0); HEMOGLOBIN 15.6 g/dL (13.5-17.0); LYMPHOCYTES % (AUTO) 17.1 % (13-45); MEAN CORPUSCULAR HEMOGLOBIN 31.3 pg (27.0-33.4); MEAN CORPUSCULAR HGB CONC 33.8 g/dL (32.0-36.0); MEAN CORPUSCULAR VOLUME 93 fl (80-97); MONOCYTES % (AUTO) 6.9 % (3-13); PLATELET COUNT 199 10^3/uL (150-450); RED BLOOD COUNT 4.99 10^6/uL (4.35-5.55); RED CELL DISTRIBUTION WIDTH 14.6 % (11.5-14.0); TOTAL CELLS COUNTED % (AUTO) 100 %; WHITE BLOOD COUNT 10.2 10^3/uL (4.0-10.5)
[2019-02-08 15:23] LABS: ALBUMIN 5.1 g/dL (3.5-5.0); ALCOHOL 186 mg/dL (NONE DETECTED); ALKALINE PHOSPHATASE 119 U/L (38-126); ANION GAP 17 (5-19); ASPARTATE AMINO TRANSFERASE 348 U/L (17-59); BILIRUBIN,DIRECT 0.3 mg/dL (0.0-0.4); BILIRUBIN,TOTAL 1.1 mg/dL (0.2-1.3); BLOOD UREA NITROGEN 11 mg/dL (7-20); CARBON DIOXIDE 23 mmol/L (22-30); CHLORIDE 101 mmol/L (98-107); GLUCOSE 106 mg/dL (75-110); POTASSIUM 3.6 mmol/L (3.6-5.0); TOTAL PROTEIN 8.7 g/dL (6.3-8.2)
[2019-02-08] MEDS ORDERED: NORMAL SALINE 1000 ML 1,000 ML IV ONE (16:00)
--- NOTE | 2019-02-08 16:02 | ER Document Report ---
ED General - General Chief Complaint: ETOH Abuse Stated Complaint: ETOH Time Seen by Provider: 02/08/19 14:29 Mode of Arrival: Medic Notes: HPI: Patient is a 28-year-old male who states that he drank numerous amounts of beer this morning. He states he has a drinking problem. He denies any suicidal homicidal ideations. Patient states 3 days ago he did punch a wall with his right hand out of anger. He denies pain anywhere other than to the medial aspect of his right hand. Patient states his tetanus is up-to-date. Patient denies any headache, neck pain, chest pain, abdominal pain, weakness or numbness. ROS: See HPI All other review of systems reviewed and otherwise negative Reviewed vital signs and nursing note as charted by RN. PHYSICAL EXAM: CONSTITUTIONAL: Alert and oriented and responds appropriately to questions. Well-appearing; well-nourished HEAD: Normocephalic; atraumatic EYES: PERRL; no nystagmus noted, sclerae non-icteric ENT: Normal nose; no rhinorrhea; moist mucous membranes; pharynx without lesions noted NECK: Supple without meningismus; non-tender; no cervical lymphadenopathy, no masses CARD: Regular rate and rhythm; no murmurs; symmetric distal pulses RESP: Normal chest excursion without splinting or tachypnea; breath sounds clear and equal bilaterally; no wheezes, no rhonchi, no rales ABD/GI: Normal bowel sounds; non-distended; soft, non-tender; no palpable organo megaly or masses BACK: The back appears normal and is non-tender to palpation EXT: Patient has some pain and swelling to the right medial aspect of the palm or dorsal aspect of the hand. No erythema or induration. Sensation and capillary refill intact to the distal fingertips. No wrist pain or tenderness. No snuffbox tenderness. Patient does have small abrasions to the knuckles of the right hand SKIN: See above NEURO: CN 2-12 intact; 5/5 bilateral upper and lower extremity strength with sensation intact to light touch PSYCH: The patient's mood and manner are appropriate. Grooming and personal hygiene are appropriate. TRAVEL OUTSIDE OF THE [place] IN LAST 30 DAYS: No - Related Data Allergies/Adverse Reactions: No Known Allergies Allergy (Verified 02/08/19 14:28) Past Medical History - General Information source: Patient - Social History Smoking Status: Current Every Day Smoker Chew tobacco use (# tins/day): No Frequency of alcohol use: Heavy Drug Abuse: None Family History: Other - Family history unknown. denies: Reviewed & Not Pertinent Patient has suicidal ideation: No Patient has homicidal ideation: No Pulmonary Medical History: Denies: Hx Asthma Renal/ Medical History: Denies: Hx Peritoneal Dialysis Past Surgical History: Reports: Hx Tonsillectomy - Immunizations Hx Diphtheria, Pertussis, Tetanus Vaccination: No Physical Exam - Vital signs Vitals: Temp Pulse Resp BP Pulse Ox 98.0 F 110 H 16 131/77 H 97 02/08/19 14:30 02/08/19 14:30 02/08/19 14:30 02/08/19 14:30 02/08/19 14:30 Course - Re-evaluation Re-evalutation: Given the above history and physical examination, we will obtain basic labs, provide fluids, obtain an alcohol level, and an x-ray of the right hand. I would like to assess for the possibility of boxer fractures or elect light abnormalities. Patient has no suicidal ideations. 02/08/19 16:02 X-ray as recorded. Given that it was 3 days ago I am unsure whether or not I am able to reduce this fracture. Angulated 45 degrees. I have called the orthopedic surgeon who is a hand specialist. I have provided a liter of fluids. I have had behavioral health/psychiatry talk to the patient and provide outpatient resources. 02/08/19 16:30 I did call and speak directly to the orthopedic surgeon. He looked the x-ray films and does not believe manipulation is necessary at this time. I have had behavioral health discuss with the patient alcohol treatment. Patient does not believe he has an alcohol problem at this time. I have tried to reason with the patient but he still refuses the need for treatment. He does understand he is always welcome to return for further evaluation. We will place the patient in a splint with orthopedic follow-up. I did provide the outpatient resources for alcohol treatment. - Vital Signs Vital signs: Temp Pulse Resp BP Pulse Ox 98.0 F 110 H 16 131/77 H 97 02/08/19 14:30 02/08/19 14:30 02/08/19 14:30 02/08/19 14:30 02/08/19 14:30 - Laboratory Result Diagrams: 02/08/19 14:45 02/08/19 14:45 Laboratory results interpreted by me: 02/08/19 02/08/19 14:45 14:45 RDW 14.6 H AST 348 H Total Protein 8.7 H Albumin 5.1 H Discharge - Discharge Clinical Impression: Alcohol abuse Boxers fracture Qualifiers: Encounter type: initial encounter Fracture type: closed Qualified Code(s): S62.339A - Displaced fracture of neck of unspecified metacarpal bone, initial encounter for closed fracture Condition: Good Disposition: HOME, SELF-CARE Additional Instructions: Please refrain from drinking alcohol as we have discussed. Please follow-up with 1 of the detox/substance abuse and as we have provided. Please make sure that you follow-up with orthopedics for reassessment of your fracture of your right fifth metacarpal. Referrals: LUCINDA DE LUNA, [ACTIVE STAFF] - Follow up as needed
[2019-02-08 18:22] VITALS: BP 119/67
== END 2019-02-08 18:45 | disposition home or self-care (01) ==
LOC: ER 14:20
DX: S62.336A Displaced fracture of neck of fifth metacarpal bone, right hand, initial encounter for closed fracture (principal); W22.01XA Walked into wall, initial encounter; F10.10 Alcohol abuse, uncomplicated; F17.200 Nicotine dependence, unspecified, uncomplicated
CPT/HCPCS: 36415; 80307; 85025; 80053; 73130; 29125; J7030; 96360; 99284